=== PATIENT | male | born 1990 | race Asian ===

== ENCOUNTER 2025-05-18 19:55 | Emergency (ER) | payer BC ==
[~2025-05-18] VITALS: Ht 182.9 cm; Wt 109.0 kg
[2025-05-18 20:04] VITALS: O2SAT 98
[2025-05-18 20:58] LABS: COLOR URINE YELLOW (YELLOW); GLUCOSE URINE NEGATIVE (NEGATIVE); KETONES URINE 1+ (NEGATIVE); LEUKOCYTE ESTERASE URINE TRACE (NEGATIVE); NITRITE URINE NEGATIVE (NEGATIVE); OCCULT BLOOD URINE 3+ (NEGATIVE); PH URINE 6.0 (4.5-8.0); PROTEIN URINE TRACE (NEGATIVE); SPECIFIC GRAVITY URINE 1.025 (1.005-1.030); UROBILINOGEN URINE 1.0 E.U./dL (0.2-1.0)
[2025-05-18 21:09] LABS: CLARITY URINE SL HAZY (CLEAR)
[2025-05-18 21:11] LABS: BACTERIA URINE TRACE; MUCUS URINE TRACE /lpf (NONE/TRACE); RBC URINE 25-50 /hpf (0-2); SQUAMOUS EPITHELIAL CELL URINE RARE /lpf (RARE/1+)
[2025-05-18] MEDS: MORPHINE SULFATE 4 MG/ML INJ (FOR IV/IM USE) IV ONE (21:22)
[2025-05-18] MEDS: KETOROLAC 30MG/ML VIAL IV ONE (21:22)
[2025-05-18] MEDS: SODIUM CHLORIDE 0.9% 1,000 ML IV ONE (21:24)
[2025-05-18 22:07] LABS: BASOPHILS % 0.3 % (0.0-2.0); EOSINOPHILS % 0.9 % (0.0-5.0); HEMATOCRIT. 48.6 % (42.0-52.0); HEMOGLOBIN. 16.8 g/dL (14.0-18.0); LYMPHOCYTES % 21.1 % (20.0-50.0); MEAN PLATELET VOLUME 8.5 fl (7.4-10.4); MONOCYTES % 10.6 % (2.0-8.0); NEUTROPHILS % 67.1 % (40.0-76.0); PLATELET 211 x1000/uL (130-400); RED BLOOD CELL COUNT 5.78 mill/uL (4.7-6.1); RED CELL DISTRIBUTION WIDTH 13.6 % (11.6-14.6)
[2025-05-18 22:29] LABS: CREATININE 1.6 mg/dL (0.6-1.3); UREA NITROGEN BLOOD 14.0 mg/dL (9-23)
[2025-05-18] MEDS: CEFTRIAXONE 1GM/50ML 50 ML IV SCH (22:42)
[2025-05-18] MEDS ORDERED: ONDA-239 PO (23:16)
[2025-05-18] MEDS ORDERED: KETO10TA2 MT (23:16)
[2025-05-18 23:29] VITALS: BP 105/66; PULSE 78; RESP 14; TEMP 36.5; O2SAT 100
== END 2025-05-18 23:34 | disposition home or self-care (01) ==
LOC: ER 19:55 → CMPBEDREQ 05-19 03:05
DX: N23 Unspecified renal colic (principal); F17.200 Nicotine dependence, unspecified, uncomplicated; N13.2 Hydronephrosis with renal and ureteral calculous obstruction
CPT/HCPCS: 80048; 81003; 83690; 85025; 36415; 74176; 96361; 96365; 96375; 99285; J0696; J1885; J2270; J7030; Z7610